=== PATIENT | male | born 2000 | race African-American/Black ===

== ENCOUNTER → 2022-08-22 | Outpatient (CLI) | payer OTHER | END | disposition home or self-care (01) | LOC: RADPV 12:27 | PROVIDERS: ATTEND Chiropractor | DX: S62.344G Nondisplaced fracture of base of fourth metacarpal bone, right hand, subsequent encounter for fracture with delayed healing (principal); S62.347 Nondisplaced fracture of base of fifth metacarpal bone, left hand; L84 Corns and callosities; M13.841 Other specified arthritis, right hand; X58.XXXA Exposure to other specified factors, initial encounter; Y93.89 Activity, other specified; Y92.89 Other specified places as the place of occurrence of the external cause; Y99.8 Other external cause status | CPT/HCPCS: 73130-TC ==